=== PATIENT | male | born 1960 | race American Indian/Alaskan Native ===

== ENCOUNTER 2016-07-15 15:14 | Inpatient (IN) | payer OTHER ==
[2016-07-15 16:30] LABS: EOS % 0.6 % (0.0-4.0); HEMATOCRIT 41.4 % (35.0-51.0); LYMPH # 1.4 K/uL (1.0-4.3); LYMPH % 45.4 % (20.0-40.0); MEAN CELL VOLUME 95.2 fL (80.0-94.0); MEAN CORPUSCULAR HEMOGLOBIN 32.9 pg (27.0-31.0); MEAN CORPUSCULAR HGB CONC 34.5 g/dL (33.0-37.0); MEAN PLATELET VOLUME 6.5 fL (7.2-11.7); MONO # 0.4 K/uL (0.0-0.8); MONO % 12.2 % (0.0-10.0); RED CELL DISTRIBUTION WIDTH 15.7 % (11.5-14.5)
[2016-07-15 16:38] LABS: CHLORIDE 103 mmol/L (98-107)
[2016-07-15 16:39] LABS: SODIUM 141 mmol/L (132-148)
[2016-07-15 16:40] LABS: POTASSIUM 3.2 mmol/L (3.6-5.2)
--- NOTE | 2016-07-15 16:41 | C.PDOC ---
History Of Present Illness Pt is here requesting detox from alcohol. Time Seen by Provider: 07/15/16 16:09 Chief Complaint (Nursing): Substance Abuse History Per: Patient Onset/Duration Of Symptoms: Days Current Symptoms Are (Timing): Still Present Suicide/Self Injury Attempted (Context): None Modifying Factor(s): Alcohol Severity: Moderate Associated Symptoms: denies: Suicidal Thoughts, Suicidal Plan Additional History Per: Prior Records Past Medical History Reviewed: Historical Data, Nursing Documentation, Vital Signs Vital Signs: Last Vital Signs Temp 98 F 07/15/16 18:25 Pulse 78 07/15/16 20:31 Resp 16 07/15/16 20:31 BP 175/87 H 07/15/16 20:31 Pulse Ox 96 07/15/16 20:31 - Medical History PMH: CAD, Fibromyalgia, HTN Surgical History: Coronary Stent, Pacemaker Family History: States: Unknown Family Hx - Social History Hx Tobacco Use: Yes Hx Alcohol Use: Yes Hx Substance Use: No - Immunization History Hx Influenza Vaccination: Yes Hx Pneumococcal Vaccination: Yes Review Of Systems Except As Marked, All Systems Reviewed And Found Negative. Constitutional: Negative for: Fever Cardiovascular: Negative for: Chest Pain Respiratory: Negative for: Shortness of Breath, Hemoptysis Gastrointestinal: Negative for: Abdominal Pain, Melena, Hematochezia, Hematemesis Musculoskeletal: Negative for: Neck Pain Skin: Negative for: Rash Neurological: Negative for: Weakness, Numbness, Seizures, Altered Mental Status Physical Exam - Physical Exam Appears: Non-toxic, No Acute Distress Skin: Normal Color, Warm, Dry, No Rash Head: Atraumatic, Normacephalic Eye(s): bilateral: PERRL, EOMI Neck: Normal ROM, Supple Cardiovascular: Rhythm Regular Respiratory: Normal Breath Sounds, No Accessory Muscle Use Gastrointestinal/Abdominal: Soft, No Tenderness Extremity: Normal ROM, No Deformity Neurological/Psych: Oriented x3, Normal Motor, Normal Sensation ED Course And Treatment - Laboratory Results Result Diagrams: 07/15/16 16:26 07/15/16 16:26 Lab Interpretation: No Acute Changes ECG: Interpreted By Me, Viewed By Me ECG Rhythm: Sinus Rhythm, Nonspecific Changes Rate From EC O2 Sat by Pulse Oximetry: 97 Pulse Ox Interpretation: Normal - Radiology CXR: Interpreted by Me, Viewed By Me CXR Interpretation: Yes: No Acute Disease Progress Note: During the ED stay while waiting for the detox admission, pt started c/o chest pain. Progress - Interventions Interventions:: Observation, Oxygen - Medications Administered Oral: Aspirin - Data Reviewed Data Reviewed: Lab, Diagnostic imaging, EKG, Old records - Patient Status Patient status: Partially improved - Continuity of Care Discussed patient case with:: Patient, ED Nurse, On-call PMD-pt unassigned Disposition Discussed With DrSudarshan: Suzanna Land Comment: He accepted pt on his service and gave admitting orders to the nurse. Doctor Will See Patient In The: Hospital Counseled Patient/Family Regarding: Studies Performed, Diagnosis - Disposition Disposition: HOSPITALIZED Disposition Time: 21:00 Condition: FAIR - Clinical Impression Clinical Impression: Chest pain, Alcohol abuse
[2016-07-15 16:42] LABS: ALB/GLOB RATIO 1.4 (1.0-2.1); ALKALINE PHOSPHATASE 80 U/L (38-126); ALT/SGPT 47 U/L (21-72); AST/SGOT 62 U/L (17-59); BILIRUBIN,TOTAL 0.9 mg/dL (0.2-1.3); BLOOD UREA NITROGEN 7 mg/dL (9-20); CALCIUM 8.3 mg/dl (8.6-10.4); CARBON DIOXIDE 24 mmol/L (22-30); GFR AFRICAN-AMERICAN > 60; GLUCOSE,RANDOM 81 mg/dL (75-110); TOTAL PROTEIN 7.4 g/dL (6.3-8.3)
[2016-07-15 16:43] LABS: ALCOHOL SERUM 222 mg/dl (0-10)
[2016-07-15 17:13] LABS: RBC URINE 4 /hpf (0-3); URINE BACTERIA OCC (<OCC); URINE BILIRUBIN NEGATIVE (NEGATIVE); URINE BLOOD TRACE (NEGATIVE); URINE COLOR Amber (YELLOW); URINE GLUCOSE (UA) NORMAL (Normal); URINE KETONE 1+ mg/dL (NEGATIVE); URINE LEUKOCYTE ESTERASE 1+ Leu/uL (Negative); URINE PROTEIN 2+ mg/dL (NEGATIVE); WBC URINE 15 /hpf (0-5)
[2016-07-15] MEDS ORDERED: Potassium Chloride 20 mEq ER Tab PO STA (19:28)
[2016-07-15] MEDS ORDERED: Potassium Chloride 20 mEq ER Tab PO ONE (19:38)
[2016-07-15] MEDS ORDERED: Nitroglycerin 2% Ointment Foilpak UD TOP STA (19:52)
[2016-07-15] MEDS ORDERED: Nitroglycerin 2% Ointment Foilpak UD TOP ONE (19:58)
[2016-07-16 08:54] LABS: BASO # 0.1 K/uL (0.0-0.2); BASO % 2.9 % (0.0-2.0); EOS % 0.1 % (0.0-4.0); HEMATOCRIT 40.2 % (35.0-51.0); LYMPH % 23.3 % (20.0-40.0); MEAN CELL VOLUME 95.3 fL (80.0-94.0); MEAN CORPUSCULAR HEMOGLOBIN 32.6 pg (27.0-31.0); MEAN CORPUSCULAR HGB CONC 34.2 g/dL (33.0-37.0); MEAN PLATELET VOLUME 6.9 fL (7.2-11.7); MONO # 0.5 K/uL (0.0-0.8); MONO % 10.6 % (0.0-10.0); NRBC % 0.1 % (0.0-2.0); RED CELL DISTRIBUTION WIDTH 15.9 % (11.5-14.5); WHITE BLOOD COUNT 4.3 K/uL (4.8-10.8)
[2016-07-16] MEDS: Sodium Chloride 0.9% 1,000 ML IV SCH (09:00)
[2016-07-16 09:06] LABS: CHLORIDE 101 mmol/L (98-107); POTASSIUM 3.3 mmol/L (3.6-5.2); SODIUM 138 mmol/L (132-148)
[2016-07-16 09:08] LABS: ALKALINE PHOSPHATASE 75 U/L (38-126); AST/SGOT 52 U/L (17-59); BILIRUBIN,TOTAL 1.5 mg/dL (0.2-1.3); CARBON DIOXIDE 22 mmol/L (22-30); GFR AFRICAN-AMERICAN > 60
[2016-07-16 09:09] LABS: ALB/GLOB RATIO 1.4 (1.0-2.1); ALT/SGPT 42 U/L (21-72); BLOOD UREA NITROGEN 9 mg/dL (9-20); CALCIUM 8.8 mg/dl (8.6-10.4); GLUCOSE,RANDOM 74 mg/dL (75-110); PHOSPHOROUS 2.9 mg/dL (2.5-4.5); TOTAL PROTEIN 7.3 g/dL (6.3-8.3)
[2016-07-16 09:10] LABS: MAGNESIUM 1.7 mg/dL (1.6-2.3)
--- NOTE | 2016-07-16 09:13 | CP.PCM.PN ---
<Libby Willingham - Last Filed: 07/16/16 09:09> Subjective - Date & Time of Evaluation Date of Evaluation: 07/16/16 Time of Evaluation: 09:09 - Subjective Subjective: Medicine Progress Note- Libby Willingham PGY2 Patient seen and examined. Patient came in to the ED yesterday requesting alcohol detox. Patient states that his last drink was yesterday around noon. He normally drinks 1-1/2 pints of vodka daily and has been drinking for about 30 years. Patient states that he was in detox a year ago and was sober for 30 days. However, the patient had a CVA which resulted in his relapse and drinking again. Patient has residual left sided weakness from the CVA and ambulates with a cane. Patient has a history of HTN and takes multiple medications. He follows with a PMD at [facility] in [place]. Currently the patient complains of diaphoresis, sore throat, chest pain, and tremors. Patient had an episode of vomiting yesterday. He is requesting to eat at this time. Patient is homeless and lives in a detention in [place]. Objective - Vital Signs/Intake and Output Vital Signs (last 24 hours): Temp Pulse Resp BP Pulse Ox 98.5 F 83 17 186/102 H 95 07/16/16 07:30 07/16/16 08:35 07/16/16 07:30 07/16/16 08:35 07/16/16 07:30 - Medications Medications: Current Medications Aspirin (Aspirin Chewable) 81 mg PO DAILY [facility] Carvedilol (Coreg) 12.5 mg PO BID [facility] Chlordiazepoxide (Librium) 0 mg PO Q6 [facility] PRN Reason: Taper Stop: 07/20/16 11:59 Chlordiazepoxide (Librium) 25 mg PO Q4H PRN PRN Reason: Alcohol Withdrawal Clonidine HCl (Catapres) 0.1 mg PO Q4H PRN PRN Reason: Symptoms of alcohol withdrawl Enoxaparin Sodium (Lovenox) 40 mg SC DAILY [facility] Famotidine (Pepcid) 20 mg PO BID [facility] Folic Acid (Folic Acid) 1 mg PO DAILY [facility] Sodium Chloride (Sodium Chloride 0.9%) 1,000 mls @ 60 mls/hr IV .[id number] [facility] Isosorbide Mononitrate (Imdur) 30 mg PO DAILY [facility] Lisinopril (Zestril) 40 mg PO DAILY [facility] Lorazepam (Ativan) 1 mg IVP Q6H PRN PRN Reason: Anxiety Multivitamins (Hexavitamin) 1 tab PO DAILY [facility] Rosuvastatin Calcium (Crestor) 5 mg PO HS [facility] Thiamine HCl (Vitamin B1 Tab) 100 mg PO DAILY [facility] Trazodone HCl (Desyrel) 100 mg PO HS PRN PRN Reason: Insomnia - Labs Labs: 07/16/16 08:42 07/16/16 08:42 - Constitutional Appears: No Acute Distress, Other (diaphoretic ) - Head Exam Head Exam: ATRAUMATIC, NORMOCEPHALIC - Eye Exam Eye Exam: EOMI, Normal appearance - ENT Exam ENT Exam: Mucous Membranes Dry - Neck Exam Neck Exam: Normal Inspection - Respiratory Exam Respiratory Exam: Clear to Ausculation Bilateral, NORMAL BREATHING PATTERN. absent: Rhonchi, Wheezes, Respiratory Distress - Cardiovascular Exam Cardiovascular Exam: REGULAR RHYTHM, +S1, +S2. absent: Irregular Rhythm, Murmur - GI/Abdominal Exam GI & Abdominal Exam: Soft, Normal Bowel Sounds. absent: Firm, Guarding - Extremities Exam Extremities Exam: Normal Inspection. absent: Pedal Edema - Neurological Exam Neurological Exam: Alert, Awake, Oriented x3 - Psychiatric Exam Psychiatric exam: Normal Affect, Normal Mood - Skin Skin Exam: Dry, Intact, Normal Color, Warm Assessment and Plan - Assessment and Plan (Free Text) Assessment: 1. 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 HTN Uncontrolled on admission Restart home meds: Coreg 12.5mg PO BID Imdur 30mg PO daily Lisinopril 40mg PO daily Vitals q4h, will adjust meds as needed 3. Alcohol use disorder Psych Dr Mason consulted Librium taper Ativan 1mg IV q6h prn anxiety Monitor for withdrawal symptoms IVF NS @60cc/hr MV, Folic acid, Thiamine daily UDS + alcholol, benzos 4. Hx CVA Ambulates with cane Fall risk protocol Crestor 5mg PO HS ASA 81mg PO daily 5. Prophylactic measures Pepcid 20mg PO daily SCDs Lovenox 40mg SC daily <Suzanna Land S - Last Filed: 07/16/16 14:10> Objective - Vital Signs/Intake and Output Vital Signs (last 24 hours): Temp Pulse Resp BP Pulse Ox 99.0 F 72 18 156/86 H 100 07/16/16 12:59 07/16/16 12:59 07/16/16 12:59 07/16/16 12:59 07/16/16 12:59 - Medications Medications: Current Medications Aspirin (Aspirin Chewable) 81 mg PO DAILY [facility] Last Admin: 07/16/16 10:14 Dose: Not Given Carvedilol (Coreg) 12.5 mg PO BID [facility] Last Admin: 07/16/16 10:06 Dose: 12.5 mg Chlordiazepoxide (Librium) 25 mg PO Q6 [facility] PRN Reason: Taper Stop: 07/20/16 11:59 Last Admin: 07/16/16 12:59 Dose: 25 mg Chlordiazepoxide (Librium) 25 mg PO Q4H PRN PRN Reason: Alcohol Withdrawal Clonidine HCl (Catapres) 0.1 mg PO Q4H PRN PRN Reason: Symptoms of alcohol withdrawl Enoxaparin Sodium (Lovenox) 40 mg SC DAILY [facility] Last Admin: 07/16/16 09:49 Dose: 40 mg Famotidine (Pepcid) 20 mg PO BID [facility] Last Admin: 07/16/16 10:05 Dose: 20 mg Folic Acid (Folic Acid) 1 mg PO DAILY [facility] Last Admin: 07/16/16 09:49 Dose: 1 mg Sodium Chloride (Sodium Chloride 0.9%) 1,000 mls @ 60 mls/hr IV .[id number] [facility] Isosorbide Mononitrate (Imdur) 30 mg PO DAILY [facility] Last Admin: 07/16/16 10:06 Dose: 30 mg Lisinopril (Zestril) 40 mg PO DAILY [facility] Last Admin: 07/16/16 10:05 Dose: 40 mg Lorazepam (Ativan) 1 mg IVP Q6H PRN PRN Reason: Anxiety Last Admin: 07/16/16 09:49 Dose: 1 mg Multivitamins (Hexavitamin) 1 tab PO DAILY [facility] Last Admin: 07/16/16 09:49 Dose: 1 tab Rosuvastatin Calcium (Crestor) 5 mg PO [facility] Thiamine HCl (Vitamin B1 Tab) 100 mg PO DAILY [facility] Last Admin: 07/16/16 09:48 Dose: 100 mg Trazodone HCl (Desyrel) 100 mg PO HS PRN PRN Reason: Insomnia - Labs Labs: 07/16/16 08:42 07/16/16 08:42 PT 11.8 SECONDS (9.7-12.2) 07/16/16 08:42 INR 1.0 07/16/16 08:42 APTT 29 SECONDS (21-34) 07/16/16 08:42 Attending/Attestation - Attestation I have personally seen and examined this patient.: Yes I have fully participated in the care of the patient.: Yes I have reviewed all pertinent clinical information, including history, physical exam and plan: Yes Notes (Text): 07/16/16 14:10 case sen and discussed with staff and resident agreed
[2016-07-16] MEDS ORDERED: Potassium Chloride 20 mEq ER Tab PO ONE (09:15)
[2016-07-16] MEDS: Enoxaparin 40 mg Syringe SC SCH (09:49)
[2016-07-16] MEDS: Multiple Vitamins Tab PO SCH (09:49)
--- NOTE | 2016-07-16 10:51 | CP.PCM.CON ---
Addendum entered and electronically signed by Sarah Beth King DO 07/16/16 13: 04: Will trend 3 additional PETEY as per Dr. Wick. f/u VIVIANA Henson, PGY 2 Original Note: <Marifer Aly - Last Filed: 07/16/16 11:37> History of Present Illness - History of Present Illness History of Present Illness: Cardiac Consultation Note Dr. Santamaria CC: Chest pain HPI: This is a 55 year old male with a PMH of active smoker, ETOH abuse (last drink yesterday), CAD s/p 5 stents, bradycardia s/p pacemaker, CVA with L residual weakness, HTN, HLD, and fibromyalgia, who is being seen by cardiology team for chest pain. Patient came in to the ED yesterday, 07/16/16, for alcohol detox and dull chest pain which has been occurring intermittently for the past 2 weeks. Patient states that the pain is dull, a 10/10 at its worst and a 8/10 currently. He states that he has had these chest pains come and go ever since his heart attack 3 years ago, in which he received 5 stents for. He has also had a pacemaker placed in August 2014. Patient states the pain occurred when he was just laying down, and it is non reproducible. He uses a cane and states that he experiences orthopnea, and SOB after walking 2-3 blocks. He currently is diaphoretic, admits to radiating pain from his anterior chest wall down to his left arm and up his left neck, numbness and tingling in those regions, and SOB. On ED arrival: VS: T 98, HR 79, 165/100 -> 192/112, RR 18, 97%RA WBC 3, Hb/Hct/Plt wnl, K 3.2 Trop 0.089 --> 0.097 --> 0.080 EKG upon admission, 07/15/16, showed possible inferiolateral ischemia and a prolonged QTC. Most recent EKG on 07/16/16 showed no significant changes from the prior EKG PMHx: CAD, s/p stents x 5 (last one 3 years ago, the most recent 4 stents were at [facility]) Pacemaker for bradycardia, 2014, [facility] CVA, August 2015, L residual weakness HTN HLD Fibromyalgia ETOH abuse, last drink 07/15 noon Hx ETOH withdawal seizure Active smoker Surgeries: Stent placements 3 years ago and pacemaker in August 2014. FHx: Brother has Hodgkins lymphoma and COPD, Mother has Lupus, denies any cardiac related diseases Social: Patient lives in a care home, is on social security, denies any drug use. He smokes 5-10 cigarettes a day for the past 3 years, drinks a pint and a half of vodka daily for the past 4 years, with yesterday at 12pm being his last drink. Ambulate with cane. Allergies: NKDA Med: Coreg, Lisinipril, atorvastatin, isosorbid dinitrate PMD: Dr. Flora South, [address] [place] [address] Out Diesel Engine Mechanic: Dr. Codey Pitt, [place], [place] Past Patient History - Infectious Disease Hx of Infectious Diseases: None - Past Medical History & Family History Past Medical History?: Yes - Past Social History Smoking Status: Heavy Smoker > 10 Cigarettes Daily - CARDIAC Hx Hypertension: Yes Hx Pacemaker: Yes - PULMONARY Hx Tuberculosis: No - NEUROLOGICAL HX Cerebrovascular Accident: No Hx Seizures: No - HEMATOLOGICAL/ONCOLOGICAL Hx Cancer: No Hx Human Immunodeficiency Virus (HIV): No - MUSCULOSKELETAL/RHEUMATOLOGICAL Hx Falls: No - GENITOURINARY/GYNECOLOGICAL Hx Sexually Transmitted Disorders: No - PSYCHIATRIC Hx Substance Use: No - SURGICAL HISTORY Hx Coronary Stent: Yes Meds Allergies/Adverse Reactions: Allergies Allergy/AdvReac Type Severity Reaction Status Date / Time No Known Allergies Allergy Verified 07/15/16 15:34 - Medications Medications: Current Medications Aspirin (Aspirin Chewable) 81 mg PO DAILY [facility] Last Admin: 07/16/16 10:14 Dose: Not Given Carvedilol (Coreg) 12.5 mg PO BID [facility] Last Admin: 07/16/16 10:06 Dose: 12.5 mg Chlordiazepoxide (Librium) 0 mg PO Q6 [facility] PRN Reason: Taper Stop: 07/20/16 11:59 Chlordiazepoxide (Librium) 25 mg PO Q4H PRN PRN Reason: Alcohol Withdrawal Clonidine HCl (Catapres) 0.1 mg PO Q4H PRN PRN Reason: Symptoms of alcohol withdrawl Enoxaparin Sodium (Lovenox) 40 mg SC DAILY [facility] Last Admin: 07/16/16 09:49 Dose: 40 mg Famotidine (Pepcid) 20 mg PO BID [facility] Last Admin: 07/16/16 10:05 Dose: 20 mg Folic Acid (Folic Acid) 1 mg PO DAILY [facility] Last Admin: 07/16/16 09:49 Dose: 1 mg Sodium Chloride (Sodium Chloride 0.9%) 1,000 mls @ 60 mls/hr IV .[id number] [facility] Isosorbide Mononitrate (Imdur) 30 mg PO DAILY [facility] Last Admin: 07/16/16 10:06 Dose: 30 mg Lisinopril (Zestril) 40 mg PO DAILY [facility] Last Admin: 07/16/16 10:05 Dose: 40 mg Lorazepam (Ativan) 1 mg IVP Q6H PRN PRN Reason: Anxiety Last Admin: 07/16/16 09:49 Dose: 1 mg Multivitamins (Hexavitamin) 1 tab PO DAILY [facility] Last Admin: 07/16/16 09:49 Dose: 1 tab Rosuvastatin Calcium (Crestor) 5 mg PO HS [facility] Thiamine HCl (Vitamin B1 Tab) 100 mg PO DAILY [facility] Last Admin: 07/16/16 09:48 Dose: 100 mg Trazodone HCl (Desyrel) 100 mg PO HS PRN PRN Reason: Insomnia Physical Exam - Constitutional Appears: Non-toxic, Other Additional comments: Diaphoresis - Head Exam Head Exam: ATRAUMATIC, NORMAL INSPECTION, NORMOCEPHALIC - Eye Exam Eye Exam: EOMI, Normal appearance, PERRL Pupil Exam: NORMAL ACCOMODATION, PERRL - ENT Exam ENT Exam: Mucous Membranes Moist - Respiratory Exam Respiratory Exam: Clear to Auscultation Bilateral, NORMAL BREATHING PATTERN. absent: Rales, Rhonchi, Wheezes - Cardiovascular Exam Cardiovascular Exam: REGULAR RHYTHM, +S1, +S2, Systolic Murmur (Right sternal border) - GI/Abdominal Exam GI & Abdominal Exam: Normal Bowel Sounds, Soft. absent: Distended, Rigid, Tenderness - Extremities Exam Extremities exam: Negative for: calf tenderness, tenderness - Neurological Exam Neurological exam: Alert, Oriented x3 - Psychiatric Exam Psychiatric exam: Normal Affect, Normal Mood - Skin Skin Exam: Diaphoretic, Normal Color, Warm Results - Vital Signs Recent Vital Signs: Last Vital Signs Temp 98.5 F 07/16/16 07:30 Pulse 76 07/16/16 09:47 Resp 17 07/16/16 07:30 BP 197/100 H 07/16/16 10:06 Pulse Ox 95 07/16/16 07:30 - Labs Result Diagrams: 07/16/16 08:42 07/16/16 08:42 Labs: Laboratory Results - last 24 hr 07/16/16 07/16/16 07/16/16 04:24 08:42 08:42 WBC 4.3 L RBC 4.22 L Hgb 13.7 Hct 40.2 MCV 95.3 H MCH 32.6 H MCHC 34.2 RDW 15.9 H Plt Count 173 MPV 6.9 L Neut % (Auto) 63.1 Lymph % (Auto) 23.3 Williamson % (Auto) 10.6 H Eos % (Auto) 0.1 Baso % (Auto) 2.9 H Neut # 2.7 Lymph # 1.0 Williamson # 0.5 Eos # 0.0 Baso # 0.1 PT 11.8 INR 1.0 APTT 29 Sodium Potassium Chloride Carbon Dioxide Anion Gap BUN Creatinine Est GFR ( Amer) Est GFR (Non-Af Amer) Random Glucose Calcium Phosphorus Magnesium Total Bilirubin AST ALT Alkaline Phosphatase Total Creatine Kinase 105 CK-MB (Mass) 1.32 Troponin I, Quant 0.0970 Total Protein Albumin Globulin Albumin/Globulin Ratio 07/16/16 08:42 WBC RBC Hgb Hct MCV MCH MCHC RDW Plt Count MPV Neut % (Auto) Lymph % (Auto) Williamson % (Auto) Eos % (Auto) Baso % (Auto) Neut # Lymph # Williamson # Eos # Baso # PT INR APTT Sodium 138 Potassium 3.3 L Chloride 101 Carbon Dioxide 22 Anion Gap 19 BUN 9 Creatinine 0.7 L Est GFR ( Amer) > 60 Est GFR (Non-Af Amer) > 60 Random Glucose 74 L Calcium 8.8 Phosphorus 2.9 Magnesium 1.7 Total Bilirubin 1.5 H AST 52 ALT 42 Alkaline Phosphatase 75 Total Creatine Kinase 109 CK-MB (Mass) 1.41 Troponin I, Quant 0.0800 Total Protein 7.3 Albumin 4.3 Globulin 3.0 Albumin/Globulin Ratio 1.4 Assessment & Plan - Assessment and Plan (Free Text) Plan: 55 year old male with a PMH ETOH abuse, last drink 07/15/16, CAD s/p 5 stents ( last one 3 years ago), pacemaker, CVA with ____ residual weakness, HTN, HLD, and fibromyalgia, who is being seen by cardiology team for chest pain. Acute, Chest pain r/o Acute coronary syndrome - improving Unstable angina, probably induced by tachycardia (demand) from ETOH withdrawal - This AM: 8/10 CP with diaphoresis s/p ASA x1, metoprolol x 1, morphine x 1, and already on nitropatch - GARY score 4 ( 3 CV risk factors, severe angina, ASA, Hx CAD with 5 stents) = 20% risk of .DE/urgent revascularization by 14d. - Consider cardiac catheterization - consider Lovonex therapeutic dose - Imdur 30 qd Hx CAD s/p stent - not on plavix - No hx of GI bleed - BB, asa, ana lilia-i/arb, statin (intermodal truck driver manage) - Pending A1c, lipid - ASA, Carvedilol 12.5 BID, lisinopril 40 qd, crestor 5 Hx Bradycardia s/p Pacemaker - Pending record from [facility] CVA with L residual weakness, - ASA HTN - clonidine 0.1 q4 PRN HLD ETOH withdrawl - consider CIWA protocal - tachycarhia, sinus, likely from ETOH withdrawl - clonidine PRN Active smoker - counseling services manager cessation Will d/s/r/w Dr. Santamaria - Date & Time Date: 07/16/16 Time: 11:03 <Mery Santamaria - Last Filed: 07/20/16 14:32> Results - Vital Signs Recent Vital Signs: Last Vital Signs Temp 97.8 F 07/17/16 11:19 Pulse 84 07/17/16 12:30 Resp 20 07/17/16 11:19 BP 153/98 H 07/17/16 11:23 Pulse Ox 98 07/17/16 11:19 - Labs Result Diagrams: 07/17/16 07:17 07/17/16 07:17 Attending/Attestation - Attestation I have personally seen and examined this patient.: Yes I have fully participated in the care of the patient.: Yes I have reviewed all pertinent clinical information: Yes Notes (Text): 07/20/16 14:32 echo trend enzymes check icd
--- NOTE | 2016-07-16 11:19 | RAD ---
HISTORY: Chest pain COMPARISON: None available. TECHNIQUE: Chest, one view. FINDINGS: LUNGS: No focal consolidation. Please note that chest x-ray has limited sensitivity for the detection of pulmonary masses. PLEURA: No significant pleural effusion identified. No definite pneumothorax . CARDIOVASCULAR: Single lead left-sided AICD. Mild cardiomegaly. Ectatic aorta. OSSEOUS STRUCTURES: No acute osseous abnormality identified. VISUALIZED UPPER ABDOMEN: Unremarkable. OTHER FINDINGS: None. IMPRESSION: No focal consolidation, significant pleural effusion, or definite pneumothorax identified. Left-sided AICD. Mild cardiomegaly. Ectatic aorta.
--- NOTE | 2016-07-16 14:11 | CP.PCM.HP ---
History of Present Illness - History of Present Illness History of Present Illness: Patient seen and examined. Patient came in to the ED yesterday requesting alcohol detox. Patient states that his last drink was yesterday around noon. He normally drinks 1-1/2 pints of vodka daily and has been drinking for about 30 years. Patient states that he was in detox a year ago and was sober for 30 days. However, the patient had a CVA which resulted in his relapse and drinking again. Patient has residual left sided weakness from the CVA and ambulates with a cane. Patient has a history of HTN and takes multiple medications. He follows with a PMD at [facility] in [place]. Currently the patient complains of diaphoresis, sore throat, chest pain, and tremors. Patient had an episode of vomiting yesterday. He is requesting to eat at this time. Patient is homeless and lives in a care home in [place]. Past Patient History - Infectious Disease Hx of Infectious Diseases: None - Past Medical History & Family History Past Medical History?: Yes - Past Social History Smoking Status: Heavy Smoker > 10 Cigarettes Daily - CARDIAC Hx Hypertension: Yes Hx Pacemaker: Yes - PULMONARY Hx Tuberculosis: No - NEUROLOGICAL HX Cerebrovascular Accident: No Hx Seizures: No - HEMATOLOGICAL/ONCOLOGICAL Hx Cancer: No Hx Human Immunodeficiency Virus (HIV): No - MUSCULOSKELETAL/RHEUMATOLOGICAL Hx Falls: No - GENITOURINARY/GYNECOLOGICAL Hx Sexually Transmitted Disorders: No - PSYCHIATRIC Hx Substance Use: No - SURGICAL HISTORY Hx Coronary Stent: Yes Meds Allergies/Adverse Reactions: Allergies Allergy/AdvReac Type Severity Reaction Status Date / Time No Known Allergies Allergy Verified 07/15/16 15:34 Physical Exam - Constitutional Appears: Well - Head Exam Head Exam: ATRAUMATIC, NORMAL INSPECTION, NORMOCEPHALIC - Eye Exam Eye Exam: EOMI, Normal appearance, PERRL Pupil Exam: NORMAL ACCOMODATION, PERRL - ENT Exam ENT Exam: Mucous Membranes Moist, Normal Exam - Neck Exam Neck exam: Positive for: Normal Inspection - Respiratory Exam Respiratory Exam: Decreased Breath Sounds - Cardiovascular Exam Cardiovascular Exam: REGULAR RHYTHM, +S1, +S2 - GI/Abdominal Exam GI & Abdominal Exam: Diminished Bowel Sounds, Soft - Rectal Exam Rectal Exam: Deferred Results - Vital Signs Recent Vital Signs: Last Vital Signs Temp 99.0 F 07/16/16 12:59 Pulse 72 07/16/16 12:59 Resp 18 07/16/16 12:59 BP 156/86 H 07/16/16 12:59 Pulse Ox 100 07/16/16 12:59 - Labs Result Diagrams: 07/16/16 08:42 07/16/16 08:42 Labs: Laboratory Results - last 24 hr 07/16/16 07/16/16 07/16/16 04:24 08:42 08:42 WBC 4.3 L RBC 4.22 L Hgb 13.7 Hct 40.2 MCV 95.3 H MCH 32.6 H MCHC 34.2 RDW 15.9 H Plt Count 173 MPV 6.9 L Neut % (Auto) 63.1 Lymph % (Auto) 23.3 Cherry % (Auto) 10.6 H Eos % (Auto) 0.1 Baso % (Auto) 2.9 H Neut # 2.7 Lymph # 1.0 Cherry # 0.5 Eos # 0.0 Baso # 0.1 PT 11.8 INR 1.0 APTT 29 Sodium Potassium Chloride Carbon Dioxide Anion Gap BUN Creatinine Est GFR ( Amer) Est GFR (Non-Af Amer) Random Glucose Calcium Phosphorus Magnesium Total Bilirubin AST ALT Alkaline Phosphatase Total Creatine Kinase 105 CK-MB (Mass) 1.32 Troponin I, Quant 0.0970 Total Protein Albumin Globulin Albumin/Globulin Ratio 07/16/16 07/16/16 08:42 12:34 WBC RBC Hgb Hct MCV MCH MCHC RDW Plt Count MPV Neut % (Auto) Lymph % (Auto) Cherry % (Auto) Eos % (Auto) Baso % (Auto) Neut # Lymph # Cherry # Eos # Baso # PT INR APTT Sodium 138 Potassium 3.3 L Chloride 101 Carbon Dioxide 22 Anion Gap 19 BUN 9 Creatinine 0.7 L Est GFR ( Amer) > 60 Est GFR (Non-Af Amer) > 60 Random Glucose 74 L Calcium 8.8 Phosphorus 2.9 Magnesium 1.7 Total Bilirubin 1.5 H AST 52 ALT 42 Alkaline Phosphatase 75 Total Creatine Kinase 109 104 CK-MB (Mass) 1.41 1.56 Troponin I, Quant 0.0800 0.0740 Total Protein 7.3 Albumin 4.3 Globulin 3.0 Albumin/Globulin Ratio 1.4
--- NOTE | 2016-07-16 16:45 | RAD ---
HISTORY: Chest pain. Pulmonary etiology suspected COMPARISON: July 15, 2016. TECHNIQUE: Chest PA and lateral FINDINGS: LUNGS: No active pulmonary disease. PLEURA: No significant pleural effusion identified. No pneumothorax apparent. CARDIOVASCULAR: No radiographic findings to suggest acute or significant cardiovascular disease. Macro pacer OSSEOUS STRUCTURES: No significant abnormalities. VISUALIZED UPPER ABDOMEN: Normal. OTHER FINDINGS: None. IMPRESSION: No active disease. No significant interval change compared to the prior examination(s).
[2016-07-16 16:52] VITALS: O2SAT 98
--- NOTE | 2016-07-16 18:26 | CARD ---
APPROVED REPORT EKG Measurement Heart [id number] <Conclusion> Normal sinus rhythm T wave abnormality, consider inferolateral ischemia Prolonged QT Abnormal ECG
[2016-07-17] MEDS: Sodium Chloride 0.9% 1,000 ML IV SCH (01:56)
[2016-07-17 07:30] LABS: BASO % 0.7 % (0.0-2.0); EOS % 0.7 % (0.0-4.0); HEMATOCRIT 38.7 % (35.0-51.0); LYMPH # 1.4 K/uL (1.0-4.3); LYMPH % 37.9 % (20.0-40.0); MEAN CELL VOLUME 96.4 fL (80.0-94.0); MEAN CORPUSCULAR HGB CONC 34.2 g/dL (33.0-37.0); MEAN PLATELET VOLUME 7.2 fL (7.2-11.7); MONO # 0.5 K/uL (0.0-0.8); MONO % 12.8 % (0.0-10.0); NRBC % 0.2 % (0.0-2.0); RED CELL DISTRIBUTION WIDTH 15.6 % (11.5-14.5); WHITE BLOOD COUNT 3.6 K/uL (4.8-10.8)
--- NOTE | 2016-07-17 07:38 | CP.PCM.PN ---
Subjective - Date & Time of Evaluation Date of Evaluation: 07/17/16 Time of Evaluation: 09:22 - Subjective Subjective: Medicine Progress Note- Libby Willingham PGY2 Patient seen and examined. Patient resting comfortably in bed. Patient states that he feels better and is not experiencing significant withdrawal symptoms. Denies fever, nausea, vomiting, chest pain and diarrhea. Objective - Vital Signs/Intake and Output Vital Signs (last 24 hours): Temp Pulse Resp BP Pulse Ox 98.2 F 78 20 151/93 H 98 07/16/16 23:55 07/17/16 03:55 07/16/16 23:55 07/16/16 23:55 07/16/16 23:55 Intake and Output: 07/17/16 07/17/16 06:59 18:59 Intake Total 880 Output Total 350 Balance 530 - Medications Medications: Current Medications Aspirin (Aspirin Chewable) 81 mg PO DAILY [facility] Last Admin: 07/16/16 10:14 Dose: Not Given Carvedilol (Coreg) 12.5 mg PO BID [facility] Last Admin: 07/16/16 17:53 Dose: 12.5 mg Chlordiazepoxide (Librium) 25 mg PO Q6 [facility] PRN Reason: Taper Stop: 07/20/16 11:59 Last Admin: 07/17/16 05:54 Dose: 25 mg Chlordiazepoxide (Librium) 25 mg PO Q4H PRN PRN Reason: Alcohol Withdrawal Clonidine HCl (Catapres) 0.1 mg PO Q4H PRN PRN Reason: Symptoms of alcohol withdrawl Enoxaparin Sodium (Lovenox) 40 mg SC DAILY [facility] Last Admin: 07/16/16 09:49 Dose: 40 mg Famotidine (Pepcid) 20 mg PO BID [facility] Last Admin: 07/16/16 17:54 Dose: 20 mg Folic Acid (Folic Acid) 1 mg PO DAILY [facility] Last Admin: 07/16/16 09:49 Dose: 1 mg Sodium Chloride (Sodium Chloride 0.9%) 1,000 mls @ 60 mls/hr IV .[id number] [facility] Last Admin: 07/17/16 01:56 Dose: 60 mls/hr Isosorbide Mononitrate (Imdur) 30 mg PO DAILY [facility] Last Admin: 07/16/16 10:06 Dose: 30 mg Lisinopril (Zestril) 40 mg PO DAILY [facility] Last Admin: 07/16/16 10:05 Dose: 40 mg Lorazepam (Ativan) 1 mg IVP Q6H PRN PRN Reason: Anxiety Last Admin: 07/16/16 20:16 Dose: 1 mg Multivitamins (Hexavitamin) 1 tab PO DAILY [facility] Last Admin: 07/16/16 09:49 Dose: 1 tab Rosuvastatin Calcium (Crestor) 5 mg PO HS [facility] Last Admin: 07/16/16 22:16 Dose: 5 mg Thiamine HCl (Vitamin B1 Tab) 100 mg PO DAILY [facility] Last Admin: 07/16/16 09:48 Dose: 100 mg Trazodone HCl (Desyrel) 100 mg PO HS PRN PRN Reason: Insomnia - Labs Labs: 07/17/16 07:17 07/16/16 08:42 PT 11.8 SECONDS (9.7-12.2) 07/16/16 08:42 INR 1.0 07/16/16 08:42 APTT 29 SECONDS (21-34) 07/16/16 08:42 - Constitutional Appears: Non-toxic, No Acute Distress - Head Exam Head Exam: ATRAUMATIC, NORMOCEPHALIC - Eye Exam Eye Exam: EOMI, Normal appearance - ENT Exam ENT Exam: Mucous Membranes Moist - Respiratory Exam Respiratory Exam: Clear to Ausculation Bilateral, NORMAL BREATHING PATTERN. absent: Rhonchi, Wheezes, Respiratory Distress - Cardiovascular Exam Cardiovascular Exam: REGULAR RHYTHM, +S1, +S2 - GI/Abdominal Exam GI & Abdominal Exam: Soft, Normal Bowel Sounds. absent: Tenderness - Extremities Exam Extremities Exam: Normal Inspection. absent: Pedal Edema - Neurological Exam Neurological Exam: Alert, Awake, Oriented x3 - Psychiatric Exam Psychiatric exam: Normal Affect, Normal Mood - Skin Skin Exam: Dry, Intact, Normal Color, Warm Assessment and Plan - Assessment and Plan (Free Text) Assessment: 55 year old male with a PMH ETOH abuse, last drink 07/15/16, CAD s/p 5 stents ( last one 3 years ago), pacemaker, CVA with left sided residual weakness, HTN, HLD, and fibromyalgia 1. Chest pain ROMIs negative x6 [employer] Dr Santamaria consulted- help appreciated Consider unstable angina exacerbated by alcohol withdrawal f/u ECHO GARY score 4 ( 3 CV risk factors, severe angina, ASA, Hx CAD with 5 stents) = 20 % risk of 2. HTN Uncontrolled Restart home meds: Coreg 12.5mg PO BID Imdur 60mg PO daily (increased) Lisinopril 40mg PO daily Vitals q4h, will adjust meds as needed 3. Hx CAD s/p stent Coreg 12.5mg PO BID Imdur 60mg PO daily Lisinopril 40mg PO daily ASA 81mg PO daily f/u HgA1C Triglycerides 90, Cholesterol 235, LDL 159, HDL 50 Crestor 5mg PO HS Counseled on smoking cessation 4. Alcohol use disorder Psych Dr Mason consulted- help appreciated Librium taper Ativan 1mg IV q6h prn anxiety Monitor for withdrawal symptoms MV, Folic acid, Thiamine daily UDS + alcohol, benzos 5. Hx CVA Ambulates with cane Fall risk protocol Crestor 5mg PO HS ASA 81mg PO daily 6. Prophylactic measures Pepcid 20mg PO daily SCDs Lovenox 40mg SC daily Management per Dr Land
[2016-07-17 07:47] LABS: CHLORIDE 103 mmol/L (98-107)
[2016-07-17 07:49] LABS: POTASSIUM 3.4 mmol/L (3.6-5.2); SODIUM 138 mmol/L (132-148)
[2016-07-17 07:50] LABS: CARBON DIOXIDE 23 mmol/L (22-30); CHOLESTEROL 235 mg/dL (0-199); GFR AFRICAN-AMERICAN > 60
[2016-07-17 07:51] LABS: ALB/GLOB RATIO 1.3 (1.0-2.1); ALKALINE PHOSPHATASE 65 U/L (38-126); ALT/SGPT 34 U/L (21-72); AST/SGOT 35 U/L (17-59); BILIRUBIN,TOTAL 1.3 mg/dL (0.2-1.3); BLOOD UREA NITROGEN 13 mg/dL (9-20); CALCIUM 8.8 mg/dl (8.6-10.4); GLUCOSE,RANDOM 90 mg/dL (75-110); PHOSPHOROUS 3.8 mg/dL (2.5-4.5); TOTAL PROTEIN 6.7 g/dL (6.3-8.3)
[2016-07-17 07:52] LABS: MAGNESIUM 1.7 mg/dL (1.6-2.3)
--- NOTE | 2016-07-17 09:52 | CP.PCM.PN ---
Addendum entered and electronically signed by Marifer Aly DO 07/17/16 15:43 : Pt has a single chamber ICD. Interogation conducted today. ICD functioning well. 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 Santamaria Pt seen and examined. Pt said CP, SOB improves. The CP is more of burning today , worsening after immediately after eating. No BM yet. Objective - Vital Signs/Intake and Output Vital Signs (last 24 hours): Temp Pulse Resp BP Pulse Ox 97.4 F L 64 17 150/94 H 98 07/17/16 07:50 07/17/16 07:50 07/17/16 07:50 07/17/16 07:50 07/17/16 07:50 Intake and Output: 07/17/16 07/17/16 06:59 18:59 Intake Total 880 Output Total 350 Balance 530 - Medications Medications: Current Medications Aspirin (Aspirin Chewable) 81 mg PO DAILY [facility] Last Admin: 07/16/16 10:14 Dose: Not Given Carvedilol (Coreg) 12.5 mg PO BID [facility] Last Admin: 07/16/16 17:53 Dose: 12.5 mg Chlordiazepoxide (Librium) 25 mg PO Q6 [facility] PRN Reason: Taper Stop: 07/20/16 11:59 Last Admin: 07/17/16 05:54 Dose: 25 mg Chlordiazepoxide (Librium) 25 mg PO Q4H PRN PRN Reason: Alcohol Withdrawal Clonidine HCl (Catapres) 0.1 mg PO Q4H PRN PRN Reason: Symptoms of alcohol withdrawl Enoxaparin Sodium (Lovenox) 40 mg SC DAILY [facility] Last Admin: 07/16/16 09:49 Dose: 40 mg Famotidine (Pepcid) 20 mg PO BID [facility] Last Admin: 07/16/16 17:54 Dose: 20 mg Folic Acid (Folic Acid) 1 mg PO DAILY [facility] Last Admin: 07/16/16 09:49 Dose: 1 mg Isosorbide Mononitrate (Imdur) 60 mg PO DAILY [facility] Lisinopril (Zestril) 40 mg PO DAILY [facility] Last Admin: 07/16/16 10:05 Dose: 40 mg Lorazepam (Ativan) 1 mg IVP Q6H PRN PRN Reason: Anxiety Last Admin: 07/16/16 20:16 Dose: 1 mg Multivitamins (Hexavitamin) 1 tab PO DAILY [facility] Last Admin: 07/16/16 09:49 Dose: 1 tab Rosuvastatin Calcium (Crestor) 5 mg PO HS [facility] Last Admin: 07/16/16 22:16 Dose: 5 mg Thiamine HCl (Vitamin B1 Tab) 100 mg PO DAILY [facility] Last Admin: 07/16/16 09:48 Dose: 100 mg Trazodone HCl (Desyrel) 100 mg PO HS PRN PRN Reason: Insomnia - Labs Labs: 07/17/16 07:17 07/17/16 07:17 PT 11.8 SECONDS (9.7-12.2) 07/16/16 08:42 INR 1.0 07/16/16 08:42 APTT 29 SECONDS (21-34) 07/16/16 08:42 - Constitutional Appears: No Acute Distress - Head Exam Head Exam: ATRAUMATIC, NORMOCEPHALIC - Eye Exam Eye Exam: EOMI, Normal appearance Pupil Exam: NORMAL ACCOMODATION - ENT Exam ENT Exam: Mucous Membranes Moist - Neck Exam Neck Exam: absent: Meningismus - Respiratory Exam Respiratory Exam: Clear to Ausculation Bilateral, NORMAL BREATHING PATTERN. absent: Rales, Rhonchi, Wheezes - Cardiovascular Exam Cardiovascular Exam: REGULAR RHYTHM, +S1, +S2. absent: Murmur - GI/Abdominal Exam GI & Abdominal Exam: Soft, Normal Bowel Sounds. absent: Tenderness - Extremities Exam Extremities Exam: absent: Calf Tenderness, Normal Capillary Refill, Pedal Edema - Back Exam Back Exam: absent: CVA tenderness (L), CVA tenderness (R) - Neurological Exam Neurological Exam: Alert, Awake, Oriented x3 - Psychiatric Exam Psychiatric exam: Normal Affect, Normal Mood - Skin Skin Exam: Dry, Warm Assessment and Plan - Assessment and Plan (Free Text) Plan: 55 year old male, active smoker, with a PMH ETOH abuse, last drink 07/15/16, CAD s/p 5 stents (last one 3 years ago), pacemaker, CVA with left sided residual weakness, HTN, HLD, and fibromyalgia, admitted for ETOH withdrawal and chest pain Chest pain, possible unstable angina, exacerbated by alcohol withdrawal - ROMIs negative x6 - ECHO for structural and wall function monitoring pending____ - GARY score 4 ( 3 CV risk factors, severe angina, ASA, Hx CAD with 5 stents) = = 20% risk of /HI/urgent revascularization by 14d. 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 Santamaria <Mery Santamaria - Last Filed: 07/19/16 20:21> Objective - Vital Signs/Intake and Output Vital Signs (last 24 hours): Temp Pulse Resp BP Pulse Ox 97.8 F 84 20 153/98 H 98 07/17/16 11:19 07/17/16 12:30 07/17/16 11:19 07/17/16 11:23 07/17/16 11:19 - Labs Labs: 07/17/16 07:17 07/17/16 07:17 PT 11.8 SECONDS (9.7-12.2) 07/16/16 08:42 INR 1.0 07/16/16 08:42 APTT 29 SECONDS (21-34) 07/16/16 08:42 Attending/Attestation - Attestation I have personally seen and examined this patient.: Yes I have fully participated in the care of the patient.: Yes I have reviewed all pertinent clinical information, including history, physical exam and plan: Yes Notes (Text): 07/19/16 20:21 Pt device ICD nl function follow up outpt
--- NOTE | 2016-07-17 10:40 | CP.PCM.PN ---
Subjective - Date & Time of Evaluation Date of Evaluation: 07/17/16 Time of Evaluation: 14:40 - Subjective Subjective: clinically same Objective - Vital Signs/Intake and Output Vital Signs (last 24 hours): Temp Pulse Resp BP Pulse Ox 97.4 F L 64 17 150/94 H 98 07/17/16 07:50 07/17/16 07:50 07/17/16 07:50 07/17/16 07:50 07/17/16 07:50 Intake and Output: 07/17/16 07/17/16 06:59 18:59 Intake Total 880 Output Total 350 Balance 530 - Medications Medications: Current Medications Aspirin (Aspirin Chewable) 81 mg PO DAILY [facility] Last Admin: 07/16/16 10:14 Dose: Not Given Carvedilol (Coreg) 12.5 mg PO BID [facility] Last Admin: 07/16/16 17:53 Dose: 12.5 mg Chlordiazepoxide (Librium) 25 mg PO Q6 [facility] PRN Reason: Taper Stop: 07/20/16 11:59 Last Admin: 07/17/16 05:54 Dose: 25 mg Chlordiazepoxide (Librium) 25 mg PO Q4H PRN PRN Reason: Alcohol Withdrawal Clonidine HCl (Catapres) 0.1 mg PO Q4H PRN PRN Reason: Symptoms of alcohol withdrawl Enoxaparin Sodium (Lovenox) 40 mg SC DAILY [facility] Last Admin: 07/16/16 09:49 Dose: 40 mg Famotidine (Pepcid) 20 mg PO BID [facility] Last Admin: 07/16/16 17:54 Dose: 20 mg Folic Acid (Folic Acid) 1 mg PO DAILY [facility] Last Admin: 07/16/16 09:49 Dose: 1 mg Isosorbide Mononitrate (Imdur) 60 mg PO DAILY [facility] Lisinopril (Zestril) 40 mg PO DAILY [facility] Last Admin: 07/16/16 10:05 Dose: 40 mg Lorazepam (Ativan) 1 mg IVP Q6H PRN PRN Reason: Anxiety Last Admin: 07/16/16 20:16 Dose: 1 mg Multivitamins (Hexavitamin) 1 tab PO DAILY [facility] Last Admin: 07/16/16 09:49 Dose: 1 tab Rosuvastatin Calcium (Crestor) 5 mg PO HS [facility] Last Admin: 07/16/16 22:16 Dose: 5 mg Thiamine HCl (Vitamin B1 Tab) 100 mg PO DAILY [facility] Last Admin: 07/16/16 09:48 Dose: 100 mg Trazodone HCl (Desyrel) 100 mg PO HS PRN PRN Reason: Insomnia - Labs Labs: 07/17/16 07:17 07/17/16 07:17 PT 11.8 SECONDS (9.7-12.2) 07/16/16 08:42 INR 1.0 07/16/16 08:42 APTT 29 SECONDS (21-34) 07/16/16 08:42 - Constitutional Appears: Well - Head Exam Head Exam: ATRAUMATIC, NORMAL INSPECTION, NORMOCEPHALIC - Eye Exam Eye Exam: EOMI, Normal appearance, PERRL Pupil Exam: NORMAL ACCOMODATION, PERRL - ENT Exam ENT Exam: Mucous Membranes Moist, Normal Exam - Neck Exam Neck Exam: Full ROM, Normal Inspection. absent: Lymphadenopathy - Respiratory Exam Respiratory Exam: Decreased Breath Sounds - Cardiovascular Exam Cardiovascular Exam: REGULAR RHYTHM, +S1, +S2 - GI/Abdominal Exam GI & Abdominal Exam: Soft, Diminished Bowel Sounds - Rectal Exam Rectal Exam: Deferred Assessment and Plan (1) Alcohol abuse Status: Acute (2) Chest pain Status: Acute - Assessment and Plan (Free Text) Plan: Patient can be discharged today Follow-up outpatient Continue medicine as ordered Patient advised to stop alcohol
[2016-07-17 11:21] VITALS: BP 153/98; RESP 20; TEMP 97.8
[2016-07-17] MEDS: Multiple Vitamins Tab PO SCH (11:22)
[2016-07-17] MEDS: Enoxaparin 40 mg Syringe SC SCH (11:23)
[2016-07-17] MEDS ORDERED: Potassium Chloride 20 mEq ER Tab PO ONE (13:52)
[2016-07-17 15:25] VITALS: PULSE 84
--- NOTE | 2016-07-17 23:47 | CARD ---
APPROVED REPORT EXAM: Two-dimensional and M-mode echocardiogram with Doppler and color Doppler. Other Information Quality : GoodRhythm : NSR INDICATION Chest Pain DETOX 2D DIMENSIONS LVOT Diameter2.1 (1.8-2.4cm) M-Mode DIMENSIONS RVDd1.59 (2.1-3.2cm)Left Atrium (MM)3.54 (2.5-4.0cm) IVSd1.48 (0.7-1.1cm)Aortic Root2.99 (2.2-3.7cm) LVDd5.57 (4.0-5.6cm)Aortic Cusp Exc.1.55 (1.5-2.0cm) PWd1.66 (0.7-1.1cm)FS (%) 14 % LVDs4.79 (2.0-3.8cm)LVEF (%)29 (>50%) Aortic Valve AoV Peak Eihufqaa752.3cm/sAoV VTI38.9cmAO Peak GR.19mmHg LVOT Peak Yzyexaiy43.8cm/sLVOT VTI14.80cmAO Mean GR.9mmHg [place] (VMAX)1.27yq5YKN (VTI)1.26dc4GC P 1/2 Pzyg876qp Mitral Valve MV E Nvwlybos28.3cm/sMV A Arrzgshm452.6cm/sE/A ratio0.7 TDI E/Lateral E'0.0E/Medial E'0.0 Tricuspid Valve TR Peak Ixuvoxlg701yt/sTR Peak Gr.12ykHkHHOA06soMz LEFT VENTRICLE The left ventricle is normal size. There is mild concentric left ventricular hypertrophy. Left ventricle systolic function is severely impaired. The Ejection Fraction is 25-30%. There is global hypokinesis of the left ventricle. Transmitral Doppler flow pattern is Grade I-abnormal relaxation pattern. There is no ventricular septal defect visualized. RIGHT VENTRICLE The right ventricle is normal size. The right ventricular systolic function is normal. There is a pacemaker lead in the right ventricle. ATRIA The left atrium is mildly dilated. The right atrium size is normal. AORTIC VALVE The aortic valve is mildly sclerotic. The aortic valve is tri-cuspid. There is mild to moderate aortic regurgitation. There is no aortic valvular stenosis. MITRAL VALVE Mitral annular calcification is borderline. The mitral valve leaflets are thickened. There is no evidence of mitral valve prolapse. Mitral regurgitation is mild. TRICUSPID VALVE The tricuspid valve is normal in structure. There is trace tricuspid regurgitation. Right ventricular systolic pressure is estimated at less than 30 mmHg. There is no pulmonary hypertension. PULMONIC VALVE The pulmonary valve is normal in structure. There is trace pulmonic valvular regurgitation. GREAT VESSELS The IVC is normal in size and collapses >50% with inspiration. PERICARDIAL EFFUSION There is no pericardial effusion. <Conclusion> There is mild concentric left ventricular hypertrophy. Left ventricle systolic function is severely impaired. The Ejection Fraction is 25-30%. There is global hypokinesis of the left ventricle. Transmitral Doppler flow pattern is Grade I-abnormal relaxation pattern. There is mild to moderate aortic regurgitation. Mitral regurgitation is mild.
--- NOTE | 2016-07-18 00:24 | CARD ---
APPROVED REPORT EKG Measurement Heart [id number] [place] 152P13 [id number] <Conclusion> Normal sinus rhythm T wave abnormality, consider inferolateral ischemia Prolonged QT Abnormal ECG
--- NOTE | 2016-07-18 00:25 | CARD ---
APPROVED REPORT EKG Measurement Heart [id number] [place] 164P23 [id number] <Conclusion> Normal sinus rhythm T wave abnormality, consider inferolateral ischemia Prolonged QT Abnormal ECG
--- NOTE | 2016-07-18 00:25 | CARD ---
APPROVED REPORT EKG Measurement Heart [id number] [place] 136P25 [id number] <Conclusion> Normal sinus rhythm with sinus arrhythmia T wave abnormality, consider inferolateral ischemia Prolonged QT Abnormal ECG
--- NOTE | 2016-07-18 15:06 | CARD ---
APPROVED REPORT EKG Measurement Heart [id number] [place] 148P6 [id number] <Conclusion> Normal sinus rhythm Minimal voltage criteria for LVH, may be normal variant T wave abnormality, consider inferolateral ischemia Prolonged QT Abnormal ECG
--- NOTE | 2016-07-18 15:06 | CARD ---
APPROVED REPORT EKG Measurement Heart [id number] [place] 156P23 [id number] <Conclusion> Normal sinus rhythm Moderate voltage criteria for LVH, may be normal variant T wave abnormality, consider inferolateral ischemia Abnormal ECG
== END 2016-07-17 21:30 | disposition home or self-care (01) | DRG 132 ==
LOC: C.ER 15:14 → C.9E 21:21 → C.6T 07-16 00:58
PROVIDERS: ADMIT Internal Medicine Nephrology; ATTEND Internal Medicine Nephrology
DX: I25.750 Atherosclerosis of native coronary artery of transplanted heart with unstable angina (principal); F10.239 Alcohol dependence with withdrawal, unspecified; I69.354 Hemiplegia and hemiparesis following cerebral infarction affecting left non-dominant side; I10 Essential (primary) hypertension; E78.5 Hyperlipidemia, unspecified; M79.7 Fibromyalgia; R00.1 Bradycardia, unspecified; F17.210 Nicotine dependence, cigarettes, uncomplicated; Z95.5 Presence of coronary angioplasty implant and graft; Z95.0 Presence of cardiac pacemaker